=== PATIENT | female | born 1945 ===

== ENCOUNTER 2020-04-10 10:48 | Emergency (ER) | payer MEDICARE, OTHER ==
--- NOTE | 2020-04-10 12:12 | EDM.PDOC ---
ED HPI GENERAL MEDICAL PROBLEM - General Chief Complaint: Respiratory Problem Stated Complaint: COVID + SOB Time Seen by Provider: 04/10/20 11:21 Source of Information: Reports: Patient, RN Notes Reviewed History Limitations: Reports: No Limitations - History of Present Illness INITIAL COMMENTS - FREE TEXT/NARRATIVE: Patient is a 74-year-old female who presents to the ED for the evaluation of her generalized weakness and fatigue. Patient is a COVID positive, she states that she was positive this last Friday. She said everything is been going okay, she does have a harsh productive cough that is intermittent, increased generalized fatigue and some shortness of breath, but O2 sats while being monitored in the ER have been above 95% on room air. Patient states that last night she was getting up to go to the bathroom, and fell off the bed due to her weakness and state on the floor for little bit until she felt she could get up. She walked to the bathroom, and felt like her legs were going to give out. She was complaining mostly of the extreme weakness and fatigue, and that her had to help her up to get moving again. She did not lose consciousness, she did not black out, she did not think she hit her head, but she is not on any blood thinners. 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 Patient is denying shortness of breath this this time, she has a temperature is 98.9 F. Respiratory rate is 16. Blood pressure is g ood at 134/76. Does see Juliet Dowell as her primary care provider. Patient does not know where she could have gotten COVID-19, and states that her daughter had come over to visit her, but she also states that when she goes out she does wear her mask. - Related Data Allergies Allergy/AdvReac Type Severity Reaction Status Date / Time No Known Allergies Allergy Verified 04/10/20 11:32 Home Meds: Home Meds Enalapril [Vasotec] 1 tab PO DAILY 04/10/20 [History] Levothyroxine [Synthroid] 50 mcg PO DAILY 04/10/20 [History] Magnesium Chloride [Slow-Mag] 71.5 mg PO DAILY #5 tablet. 04/10/20 [Rx] Omeprazole 20 mg PO DAILY 04/10/20 [History] Rosuvastatin [Crestor] 5 mg PO DAILY 04/10/20 [History] glipiZIDE [Glipizide ER] 10 mg PO DAILY 04/10/20 [History] metFORMIN HCl [Metformin HCl] 1,000 mg PO BID 04/10/20 [History] Past Medical History HEENT History: Reports: Impaired Vision Neurological History: Reports: Other (See Below) Other Neuro History: bells palsy Endocrine/Metabolic History: Reports: Diabetes, Type II - Past Surgical History HEENT Surgical History: Reports: Cataract Surgery Social & Family History - Tobacco Use Smoking Status *Q: Never Smoker - Caffeine Use Caffeine Use: Reports: Coffee - Recreational Drug Use Recreational Drug Use: No ED ROS GENERAL - Review of Systems Review Of Systems: Comprehensive ROS is negative, except as noted in HPI. ED EXAM, GENERAL - Physical Exam Exam: See Below Exam Limited By: No Limitations General Appearance: Alert, WD/WN, No Apparent Distress Respiratory/Chest: No Respiratory Distress, Lungs Clear, Normal Breath Sounds, No Accessory Muscle Use, Chest Non-Tender Cardiovascular: Normal Peripheral Pulses, Regular Rate, Rhythm, No Edema, No Murmur Peripheral Pulses: 2+: Radial (L), Radial (R) Extremities: Normal Inspection, Normal Capillary Refill Neurological: Alert, Oriented, Normal Cognition, No Motor/Sensory Deficits Psychiatric: Normal Affect, Normal Mood Skin Exam: Warm, Dry, Intact, Normal Color, No Rash Course - Vital Signs Last Recorded V/S: Last Vital Signs Temp 97.6 F 04/10/20 16:13 Pulse 66 04/10/20 16:13 Resp 16 04/10/20 16:13 BP 133/82 04/10/20 16:13 Pulse Ox 98 04/10/20 16:13 - Orders/Labs/Meds Orders: Active Orders 24 hr Category Date Time Status NIH Stroke Scale [RC] ASDIRECTED Care 04/10/20 14:53 Active POC Glucose [Blood Glucose Check, Bedside] [RC] ONETIME Care 04/10/20 15:13 Active Peripheral IV Care [RC] . DIRECTED Care 04/10/20 14:31 Active Ang Head [CT] Stat Exams 04/10/20 15:26 Taken CTA Neck W & W/O Contrast [Ang Neck] [CT] Stat Exams 04/10/20 15:26 Taken Chest 1V Frontal [CR] Stat Exams 04/10/20 12:31 Taken Head wo Cont [CT] Stat Exams 04/10/20 11:45 Taken Head wo Cont [CT] Stat Exams 04/10/20 14:30 Taken Dextrose 5%-0.9% NaCl [Dextrose 5%-Normal Saline] 1,000 Med 04/10/20 14:45 Active ml IV ASDIRECTED Sodium Chloride 0.9% [Normal Saline] 100 ml Med 04/10/20 16:30 Active IV ASDIRECTED Sodium Chloride 0.9% [Saline Flush] Med 04/10/20 14:31 Active 10 ml FLUSH ASDIRECTED PRN Sodium Chloride 0.9% [Saline Flush] Med 04/10/20 16:23 Active 10 ml FLUSH ONETIME PRN Peripheral IV Insertion Adult [OM.PC] Routine Oth 04/10/20 14:31 Ordered Medication Orders Dextrose/Sodium Chloride (Dextrose 5%-Normal Saline) 1,000 mls @ 150 mls/hr IV ASDIRECTED AMARJIT Last Admin: 04/10/20 14:53 Dose: 150 mls/hr Documented by: JETHRO Sodium Chloride (Normal Saline) 100 mls @ 60 mls/hr IV ASDIRECTED AMARJIT Last Admin: 04/10/20 16:25 Dose: 60 mls/hr Documented by: THEO Sodium Chloride (Saline Flush) 10 ml FLUSH ASDIRECTED PRN PRN Reason: Keep Vein Open Last Admin: 04/10/20 14:44 Dose: 10 ml Documented by: JETHRO Sodium Chloride (Saline Flush) 10 ml FLUSH ONETIME PRN PRN Reason: Keep Vein Open Last Admin: 04/10/20 16:25 Dose: 10 ml Documented by: [id number] Labs: Laboratory Tests 04/10/20 04/10/20 04/10/20 Range/Units 12:26 12:26 12:26 WBC 4.59 (3.98-10.04) K/mm3 RBC 4.76 (3.98-5.22) M/mm3 Hgb 12.1 (11.2-15.7) gm/dl Hct 37.6 (34.1-44.9) % MCV 79.0 L (79.4-94.8) fl MCH 25.4 L (25.6-32.2) pg MCHC 32.2 (32.2-35.5) g/dl RDW Std Deviation 43.3 (36.4-46.3) fL Plt Count 196 D (182-369) K/mm3 MPV 9.7 (9.4-12.3) fl Neut % (Auto) 61.0 (34.0-71.1) % Lymph % (Auto) 28.5 (19.3-51.7) % Rock % (Auto) 10.5 (4.7-12.5) % Eos % (Auto) 0 L (0.7-5.8) Baso % (Auto) 0.0 L (0.1-1.2) % Neut # (Auto) 2.80 (1.56-6.13) K/mm3 Lymph # (Auto) 1.31 (1.18-3.74) K/mm3 Rock # (Auto) 0.48 H (0.24-0.36) K/mm3 Eos # (Auto) 0.00 L (0.04-0.36) K/mm3 Baso # (Auto) 0.00 L (0.01-0.08) K/mm3 PT (9.7-11.7) SECONDS INR APTT (22-31) SECONDS Sodium 136 (136-145) mEq/L Potassium 3.4 L (3.5-5.1) mEq/L Chloride 101 (98-107) mEq/L Carbon Dioxide 23 (21-32) mEq/L Anion Gap 15.4 H (5-15) BUN 17 (7-18) mg/dL Creatinine 0.8 (0.55-1.02) mg/dL Est Cr Clr Drug Dosing 59.09 mL/min Estimated GFR (MDRD) > 60 (>60) mL/min BUN/Creatinine Ratio 21.3 H (14-18) Glucose 40 L (83-115) mg/dL POC Glucose (83-110) mg/dL Calcium 8.8 (8.5-10.1) mg/dL Magnesium 1.5 L (1.8-2.4) mg/dl Ferritin 47 (8-252) ng/ml Total Bilirubin 0.5 (0.2-1.0) mg/dL AST 28 (15-37) U/L ALT 23 (14-59) U/L Alkaline Phosphatase 53 (46-116) U/L C-Reactive Protein 1.9 H* (<1.0) mg/dL Total Protein 7.1 (6.4-8.2) g/dl Albumin 3.5 (3.4-5.0) g/dl Globulin 3.6 gm/dL Albumin/Globulin Ratio 1.0 (1-2) 04/10/20 04/10/20 04/10/20 Range/Units 12:26 14:32 15:09 WBC (3.98-10.04) K/mm3 RBC (3.98-5.22) M/mm3 Hgb (11.2-15.7) gm/dl Hct (34.1-44.9) % MCV (79.4-94.8) fl MCH (25.6-32.2) pg MCHC (32.2-35.5) g/dl RDW Std Deviation (36.4-46.3) fL Plt Count (182-369) K/mm3 MPV (9.4-12.3) fl Neut % (Auto) (34.0-71.1) % Lymph % (Auto) (19.3-51.7) % Rock % (Auto) (4.7-12.5) % Eos % (Auto) (0.7-5.8) Baso % (Auto) (0.1-1.2) % Neut # (Auto) (1.56-6.13) K/mm3 Lymph # (Auto) (1.18-3.74) K/mm3 Rock # (Auto) (0.24-0.36) K/mm3 Eos # (Auto) (0.04-0.36) K/mm3 Baso # (Auto) (0.01-0.08) K/mm3 PT 11.5 (9.7-11.7) SECONDS INR 1.08 APTT 29 (22-31) SECONDS Sodium (136-145) mEq/L Potassium (3.5-5.1) mEq/L Chloride (98-107) mEq/L Carbon Dioxide (21-32) mEq/L Anion Gap (5-15) BUN (7-18) mg/dL Creatinine (0.55-1.02) mg/dL Est Cr Clr Drug Dosing mL/min Estimated GFR (MDRD) (>60) mL/min BUN/Creatinine Ratio (14-18) Glucose (83-115) mg/dL POC Glucose 37 L 184 H (83-110) mg/dL Calcium (8.5-10.1) mg/dL Magnesium (1.8-2.4) mg/dl Ferritin (8-252) ng/ml Total Bilirubin (0.2-1.0) mg/dL AST (15-37) U/L ALT (14-59) U/L Alkaline Phosphatase (46-116) U/L C-Reactive Protein (<1.0) mg/dL Total Protein (6.4-8.2) g/dl Albumin (3.4-5.0) g/dl Globulin gm/dL Albumin/Globulin Ratio (1-2) 04/10/20 Range/Units 16:10 WBC (3.98-10.04) K/mm3 RBC (3.98-5.22) M/mm3 Hgb (11.2-15.7) gm/dl Hct (34.1-44.9) % MCV (79.4-94.8) fl MCH (25.6-32.2) pg MCHC (32.2-35.5) g/dl RDW Std Deviation (36.4-46.3) fL Plt Count (182-369) K/mm3 MPV (9.4-12.3) fl Neut % (Auto) (34.0-71.1) % Lymph % (Auto) (19.3-51.7) % Rock % (Auto) (4.7-12.5) % Eos % (Auto) (0.7-5.8) Baso % (Auto) (0.1-1.2) % Neut # (Auto) (1.56-6.13) K/mm3 Lymph # (Auto) (1.18-3.74) K/mm3 Rock # (Auto) (0.24-0.36) K/mm3 Eos # (Auto) (0.04-0.36) K/mm3 Baso # (Auto) (0.01-0.08) K/mm3 PT (9.7-11.7) SECONDS INR APTT (22-31) SECONDS Sodium (136-145) mEq/L Potassium (3.5-5.1) mEq/L Chloride (98-107) mEq/L Carbon Dioxide (21-32) mEq/L Anion Gap (5-15) BUN (7-18) mg/dL Creatinine (0.55-1.02) mg/dL Est Cr Clr Drug Dosing mL/min Estimated GFR (MDRD) (>60) mL/min BUN/Creatinine Ratio (14-18) Glucose (83-115) mg/dL POC Glucose 151 H (83-110) mg/dL Calcium (8.5-10.1) mg/dL Magnesium (1.8-2.4) mg/dl Ferritin (8-252) ng/ml Total Bilirubin (0.2-1.0) mg/dL AST (15-37) U/L ALT (14-59) U/L Alkaline Phosphatase (46-116) U/L C-Reactive Protein (<1.0) mg/dL Total Protein (6.4-8.2) g/dl Albumin (3.4-5.0) g/dl Globulin gm/dL Albumin/Globulin Ratio (1-2) Meds: Medications Generic Name Dose Route Start Last Admin Trade Name Freq PRN Reason Stop Dose Admin Dextrose/Sodium Chloride 1,000 mls @ 150 mls/hr 04/10/20 14:45 04/10/20 14:53 Dextrose 5%-Normal Saline IV 150 mls/hr ASDIRECTED AMARJIT Administration Sodium Chloride 100 mls @ 60 mls/hr 04/10/20 16:30 04/10/20 16:25 Normal Saline IV 60 mls/hr ASDIRECTED AMARJIT Administration Sodium Chloride 10 ml 04/10/20 14:31 04/10/20 14:44 Saline Flush FLUSH 10 ml ASDIRECTED PRN Administration Keep Vein Open Sodium Chloride 10 ml 04/10/20 16:23 04/10/20 16:25 Saline Flush FLUSH 10 ml ONETIME PRN Administration Keep Vein Open Discontinued Medications Generic Name Dose Route Start Last Admin Trade Name Freq PRN Reason Stop Dose Admin Dextrose/Water 50 ml 04/10/20 14:46 04/10/20 14:49 Dextrose 50% In Water IVPUSH 04/10/20 14:47 50 ml ASDIRECTED ONE Administration Iopamidol 100 ml 04/10/20 16:23 04/10/20 16:25 Isovue-370 (76%) IVPUSH 04/10/20 16:24 100 ml ONETIME ONE Administration - Re-Assessments/Exams Free Text/Narrative Re-Assessment/Exam: 04/10/20 12:30 Patient presents to the ED for the evaluation of her increased weakness with COVID-19. We did initially get a head CT without contrast for evaluation of her fall to make sure that there was no focal neurological deficits. I do not believe that the patient is suffering from a stroke per se, but she did fall and is not sure if she hit her head. Labs will also be obtained along with a baseline chest x-ray. O2 sats are good on room air during her time here, she will be discharged home with general recommendations. 04/10/20 12:[address] demonstrates no acute intracranial abnormalities. 04/10/20 13:52 The patient's chest x-ray shows a possible early COVID-19 pneumonia, labs are essentially within normal limits, CRP is 1.9. Magnesium is mildly low at 1.5 along with a mildly low potassium, likely nutritional deficiency. We will give her a few tablets of Slow-Mag to boost the magnesium, and have her eat some green leafy vegetables over the next few days. And have her follow-up with her regular care provider as needed for further management. At this time she does not meet criteria for hospitalization, will be discharged home with general recommendations. 04/10/20 14:33 When the nursing staff was getting the patient ready to go home, the patient had some increasing left-sided neurological weakness, she could not move her left hand much, and could not lift her left leg off of the ER cart. The patient's blood glucose at this time is 37, she was taken back to CT to make sure there is no acute bleed that would have happened in the interim, then we will call neurology for further management as her last known well will be within while she has been here, she is been in this department for a total of 3 hours and 45 minutes, her last known well would have been between 1 PM and now. A stroke alert was called at this time, Dr. Matos was in to evaluate the patient with me again. 04/10/20 14:52 The patient will be given D50 for her blood glucose, and I did also order fluids, the nurse did inform me that she did a modified Malin, and the patient has developed drooling as well. 04/10/20 15:04 The patient was reassessed at bedside, and she is able to move her leg off the cot, and she was able to move her left arm off the cot as well, nurse notes that she does have a slightly weakened bpm architect from her initial assessment. Patient's blood sugar will be reassessed by nursing staff. This does look like the patient may have been suffering from low blood sugar at this time; and this may have been the cause of her symptoms. I will call neurology and run the case pass them to make sure they have no other thoughts or recommendations. 04/10/20 15:06 The patient's repeat head CT was negative for any acute intra-cranial abnormality. 04/10/20 15:[address] [facility] neurology, Dr. Montoya thinks a CTA would be appropriate if her neurological symptoms do not seem to be improving. 04/10/20 16:57 The CTA of the head and neck are both negative for any sort of occlusion at this time. Patient will be discharged home on her own recognizance at this time. The nurse does report that all neurological deficits seem to have resolved itself with the D50 and fluids given. Departure - Departure Time of Disposition: 13:53 Disposition: Home, Self-Care 01 Condition: Good Clinical Impression: COVID-19, Hypomagnesemia, Hypoglycemia - Discharge Information *PRESCRIPTION DRUG MONITORING PROGRAM REVIEWED*: No *COPY OF PRESCRIPTION DRUG MONITORING REPORT IN PATIENT FLORA: No Prescriptions: Magnesium Chloride [Slow-Mag] 71.5 mg PO DAILY #5 tablet. Instructions: COVID-19, Hypomagnesemia Referrals: Marianne Lux [facility]ER [Primary Care Provider] - Forms: ED Department Discharge Additional Instructions: You were seen in the ER today for ongoing and/or worsening respiratory symptoms. Your chest x-ray showed the early signs of a COVID-19 pneumonia. Your oxygen levels were great at 97-98% on room air. Please try to increase your oral fluid intake, and eat multiple small meals throughout the day, to keep yourself healthy. You need to keep yourself nourished in order to fight off this disease. You can try a liquid diet like gatorade/powerade as well to get your electrolytes. You may take 500 mg Tylenol every hours 6 hours for pain/fever relief. Do not exceed 4000 mg Tylenol in a 24-hour time span. However, running a fever is your body's natural response to illness, and it allows the body to develop antibodies to disease, we are recommending trying to limit the use of Tylenol as much as possible to allow your body's natural immune response. Recommend you obtain a pulse oximeter and monitor your oxygen levels at home, you should place the monitor on your finger, and sit in a calm, quiet position for a few minutes and then record the number that is on the screen. If this consistently below 90% on room air without movement, this would be cause for concern to come back to the hospital for further management of your COVID-19 disease. Your magnesium was mildly low, which could attribute to why you are feeling so weak. During this disease course, you will need to continue to try to feed yourself, as not eating will not provide the nourishment for your body in order to get over the sickness. Please again try to eat smaller meals, that do contain some green leafy vegetables to get the vital nutrients you need to survive this illness. Recommend you follow-up with your regular care provider for further management and issues regarding your COVID-19 illness. Sepsis Event Note (ED) - Evaluation Sepsis Screening Result: No Definite Risk - Focused Exam Vital Signs: Vital Signs Temp Pulse Resp BP Pulse Ox 04/10/20 16:13 97.6 F 66 16 133/82 98 04/10/20 15:10 65 20 131/79 97 04/10/20 14:18 97.5 F 68 18 126/80 95 04/10/20 11:18 98.9 F 68 16 134/76 100 - My Orders Last 24 Hours: My Active Orders 04/10/20 11:45 Head wo Cont [CT] Stat 04/10/20 12:31 Chest 1V Frontal [CR] Stat 04/10/20 14:30 Head wo Cont [CT] Stat 04/10/20 14:31 Peripheral IV Care [RC] . DIRECTED Sodium Chloride 0.9% [Saline Flush] 10 ml FLUSH ASDIRECTED PRN Peripheral IV Insertion Adult [OM.PC] Routine 04/10/20 14:45 Dextrose 5%-0.9% NaCl [Dextrose 5%-Normal Saline] 1,000 ml IV ASDIRECTED 04/10/20 14:53 NIH Stroke Scale [RC] ASDIRECTED 04/10/20 15:13 POC Glucose [Blood Glucose Check, Bedside] [RC] ONETIME 04/10/20 15:26 Ang Head [CT] Stat CTA Neck W & W/O Contrast [Ang Neck] [CT] Stat 04/10/20 16:23 Sodium Chloride 0.9% [Saline Flush] 10 ml FLUSH ONETIME PRN 04/10/20 16:30 Sodium Chloride 0.9% [Normal Saline] 100 ml IV ASDIRECTED - Assessment/Plan Last 24 Hours: My Active Orders 04/10/20 11:45 Head wo Cont [CT] Stat 04/10/20 12:31 Chest 1V Frontal [CR] Stat 04/10/20 14:30 Head wo Cont [CT] Stat 04/10/20 14:31 Peripheral IV Care [RC] . DIRECTED Sodium Chloride 0.9% [Saline Flush] 10 ml FLUSH ASDIRECTED PRN Peripheral IV Insertion Adult [OM.PC] Routine 04/10/20 14:45 Dextrose 5%-0.9% NaCl [Dextrose 5%-Normal Saline] 1,000 ml IV ASDIRECTED 04/10/20 14:53 NIH Stroke Scale [RC] ASDIRECTED 04/10/20 15:13 POC Glucose [Blood Glucose Check, Bedside] [RC] ONETIME 04/10/20 15:26 Ang Head [CT] Stat CTA Neck W & W/O Contrast [Ang Neck] [CT] Stat 04/10/20 16:23 Sodium Chloride 0.9% [Saline Flush] 10 ml FLUSH ONETIME PRN 04/10/20 16:30 Sodium Chloride 0.9% [Normal Saline] 100 ml IV ASDIRECTED
[2020-04-10] MEDS ORDERED: Sodium Chloride 0.9% 10 ML Syringe FLUSH PRN ×2 (14:31→16:23)
[2020-04-10] MEDS ORDERED: Dextrose 5%-0.9% NaCl 1,000 ML IV SCH (14:45)
[2020-04-10] MEDS ORDERED: 50% Dextrose in Water 50 ML Syringe IVPUSH ONE (14:46)
[2020-04-10] MEDS ORDERED: Iopamidol 755 Mg/ML 100 ML Bottle IVPUSH ONE (16:23)
[2020-04-10] MEDS ORDERED: Sodium Chloride 0.9% 100 ML IV SCH (16:30)
--- NOTE | 2020-05-12 10:19 | CT ---
"PROCEDURE INFORMATION: Exam: CT Head Without Contrast Exam date and time: 04/10/2020 11:46 AM Age: 74 years old Clinical indication: Patient HX: Weakness, fall, hit head, covid+ TECHNIQUE: Imaging protocol: Computed tomography of the head without contrast. Radiation optimization: All CT scans at this facility use at least one of these dose optimization techniques: automated exposure control; mA and/or kV adjustment per patient size (includes targeted exams where dose is matched to clinical indication); or iterative reconstruction. COMPARISON: US Head Neck Soft Tissue Bi 08/18/2018 8:37 AM FINDINGS: Brain: Normal. No hemorrhage. Unremarkable white matter. No mass effect. Cerebral ventricles: No ventriculomegaly. Bones/joints: Unremarkable. No acute fracture. Paranasal sinuses: Small amount of fluid is noted within the maxillary sinus on the right. This could represent acute or chronic paranasal sinusitis. Mastoid air cells: Visualized mastoid air cells are well aerated. Soft tissues: Unremarkable. IMPRESSION: No acute intracranial abnormality identified. ASSESSMENT: ASPECTS ([place] Stroke Program Early CT Score) is 10. Thank you for allowing us to participate in the care of your patient. Dictated and Authenticated by: Hussein Prakash MD WEINREIS, JOANNE | Final Radiology Report CONFIDENTIALITY STATEMENT This report is intended only for use by the referring physician, and only in accordance with law. If you received this in error, call [phone]. Page 2 of 2 05/12/2020 11:09 AM Central Time ([place] & [place]) RAMEZ"
--- NOTE | 2020-05-12 10:20 | CR ---
PROCEDURE INFORMATION: Exam: XR Chest, 1 View Exam date and time: 04/10/2020 12:39 PM Age: 74 years old Clinical indication: Shortness of breath; Patient HX: Covid TECHNIQUE: Imaging protocol: XR of the chest Views: 1 view. COMPARISON: CR Chest 2V 11/27/2017 9:49 AM FINDINGS: Lungs: Chronic appearing interstitial changes are present. There is faint nodular airspace opacity within both lungs predominantly peripherally that appears to be new when compared to the previous examination. The finding is concerning for atypical pneumonia. This could be due to the patient's stated history of COVID-19 infection. Pleural space: Unremarkable. No pleural effusion. No pneumothorax. Heart/Mediastinum: Unremarkable. No cardiomegaly. Bones/joints: Unremarkable. IMPRESSION: Possible early COVID-19 pneumonia. Thank you for allowing us to participate in the care of your patient. Dictated and Authenticated by: Hussein Prakash MD 05/12/2020 11:10 AM Central Time ([place]) RAMEZ
--- NOTE | 2020-05-12 10:21 | CT ---
"PROCEDURE INFORMATION: Exam: CT Head Without Contrast Exam date and time: 04/10/2020 2:29 PM Age: 74 years old Clinical indication: Weakness, extremity; Patient HX: Increasing left sided weakness TECHNIQUE: Imaging protocol: Computed tomography of the head without contrast. Radiation optimization: All CT scans at this facility use at least one of these dose optimization techniques: automated exposure control; mA and/or kV adjustment per patient size (includes targeted exams where dose is matched to clinical indication); or iterative reconstruction. COMPARISON: CT Head wo Cont 04/10/2020 11:46 AM FINDINGS: Brain: Normal. No hemorrhage. Unremarkable white matter. No mass effect. Cerebral ventricles: No ventriculomegaly. Bones/joints: Unremarkable. No acute fracture. Paranasal sinuses: Small amount of fluid is noted within the maxillary sinus on the right. This could represent acute or chronic paranasal sinusitis. Mastoid air cells: Visualized mastoid air cells are well aerated. Soft tissues: Unremarkable. IMPRESSION: No acute intracranial abnormality identified. ASSESSMENT: ASPECTS ([place] Stroke Program Early CT Score) is 10. Thank you for allowing us to participate in the care of your patient. Dictated and Authenticated by: Hussein Prakash MD WEINREIS, JOANNE | Final Radiology Report CONFIDENTIALITY STATEMENT This report is intended only for use by the referring physician, and only in accordance with law. If you received this in error, call [phone]. Page 2 of 2 05/12/2020 11:11 AM Central Time ([place] & [place]) RAMEZ"
--- NOTE | 2020-05-12 10:22 | CT ---
"PROCEDURE INFORMATION: Exam: CT Angiography Neck With Contrast Exam date and time: 04/10/2020 3:41 PM Age: 74 years old Clinical indication: Weakness TECHNIQUE: Imaging protocol: Computed tomography angiography of the neck with intravenous contrast. 3D rendering (Not supervised by radiologist): MIP and/or 3D reconstructed images were created by the technologist. COMPARISON: US Head Neck Soft Tissue Bi 08/18/2018 8:37 AM FINDINGS: Right common carotid artery: No stenosis. No dissection or occlusion. Right internal carotid artery: No stenosis of the extracranial segment. No dissection or occlusion. Right external carotid artery: No occlusion or stenosis of the origin. Right vertebral artery: No stenosis. No dissection or occlusion. Left common carotid artery: No stenosis. No dissection or occlusion. Left internal carotid artery: No stenosis of the extracranial segment. No dissection or occlusion. Left external carotid artery: No occlusion or stenosis of the origin. Left vertebral artery: No stenosis. No dissection or occlusion. Bones/joints: No acute fracture. Soft tissues: Normal. No significant soft tissue swelling. IMPRESSION: No stenosis or occlusion. REFERENCES: NASCET CRITERIA. The degree of internal carotid artery stenosis is based on NASCET criteria. Normal is no stenosis. Mild is less than 50% stenosis. Moderate is 50-69% stenosis. Severe is 70% to 99% stenosis. Total occlusion is no detectable patent lumen. POP MIR | Final Radiology Report CONFIDENTIALITY STATEMENT This report is intended only for use by the referring physician, and only in accordance with law. If you received this in error, call [phone]. Page 2 of 2 Thank you for allowing us to participate in the care of your patient. Dictated and Authenticated by: Hussein Prakash MD 05/12/2020 11:12 AM Central Time ([place] & [place]) [place]AMEZ"
--- NOTE | 2020-05-12 10:22 | CT ---
"PROCEDURE INFORMATION: Exam: CT Angiography Head With Contrast Exam date and time: 04/10/2020 3:41 PM Age: 74 years old Clinical indication: Weakness TECHNIQUE: Imaging protocol: Computed tomography angiography of the head with intravenous contrast. 3D rendering (Not supervised by radiologist): MIP and/or 3D reconstructed images were created by the technologist. COMPARISON: CT Head wo Cont 04/10/2020 2:29 PM FINDINGS: Right common carotid artery: No stenosis. No dissection or occlusion. Right internal carotid artery: No stenosis of the extracranial segment. No dissection or occlusion. Right external carotid artery: No occlusion or stenosis of the origin. Right vertebral artery: No stenosis. No dissection or occlusion. Left common carotid artery: No stenosis. No dissection or occlusion. Left internal carotid artery: No stenosis of the extracranial segment. No dissection or occlusion. Left external carotid artery: No occlusion or stenosis of the origin. Left vertebral artery: No stenosis. No dissection or occlusion. Bones/joints: No acute fracture. Soft tissues: Normal. No significant soft tissue swelling. IMPRESSION: No stenosis or occlusion. REFERENCES: NASCET CRITERIA. The degree of internal carotid artery stenosis is based on NASCET criteria. Normal is no stenosis. Mild is less than 50% stenosis. Moderate is 50-69% stenosis. Severe is 70% to 99% stenosis. Total occlusion is no detectable patent lumen. POP MIR | Final Radiology Report CONFIDENTIALITY STATEMENT This report is intended only for use by the referring physician, and only in accordance with law. If you received this in error, call [phone]. Page 2 of 2 Thank you for allowing us to participate in the care of your patient. Dictated and Authenticated by: Hussein Prakash MD 05/12/2020 11:12 AM Central Time ([place] & [place]) RAME[facility]"
== END 2020-04-10 17:37 | disposition home or self-care (01) ==
LOC: JD.ED 10:48
DX: U07.1 COVID-19 (principal); E83.42 Hypomagnesemia; E11.649 Type 2 diabetes mellitus with hypoglycemia without coma; Z79.84 Long term (current) use of oral hypoglycemic drugs; Z79.899 Other long term (current) drug therapy
CPT/HCPCS: 36415; 70450; 70496; 70498; 71045; 80053; 82728; 82962; 83735; 85025; 85610; 85730; 86140; 96361; 96374; 99285; J7042; J7050; Q9967; 99284